=== PATIENT | male | born 1990 | race Caucasian/White ===

== ENCOUNTER 2020-11-26 19:29 | Emergency (ER) | payer OTHER, BC ==
[~2020-11-26] VITALS: Ht 180.3 cm; Wt 74.8 kg
[2020-11-26] MEDS ORDERED: TRAMADOL 50 MG50 MG PO (19:50)
[2020-11-26] MEDS ORDERED: PROZAC20 M1 PO (19:50)
[2020-11-26] MEDS ORDERED: CEPHALEXIN250 MG (19:51)
[2020-11-26 20:48] VITALS: BP 134/86
== END 2020-11-26 20:50 | disposition home or self-care (01) ==
LOC: M.ERS 19:29
DX: S69.92XA Unspecified injury of left wrist, hand and finger(s), initial encounter (principal); X58.XXXA Exposure to other specified factors, initial encounter; Y93.89 Activity, other specified; Y92.89 Other specified places as the place of occurrence of the external cause; Y99.8 Other external cause status